=== PATIENT | male | born 1970 | race Caucasian/White ===

== ENCOUNTER 2022-03-08 18:29 | Inpatient (IN) ==
[2022-03-08 19:12] LABS: Basophils # 0.1 10*3/uL (0.0-0.2); Basophils % 0.8 % (0.0-0.8); Eosinophils # 0.1 10*3/uL (0.0-0.87); Hematocrit 44.6 VOL% (42.0-52.0); Hemoglobin 15.7 GM/DL (14.0-18.0); Immature Granulocytes % 0.3 %; Immature Granulocytes Absolute 0.02 #; Lymphocytes # 1.4 10*3/uL (1.4-4.0); Lymphocytes % 23.1 % (21.2-54.2); Mean Corpuscular HGB Conc 35.2 GM/DL (32-36); Mean Corpuscular Volume 88.1 FL (87-102); Mean Platelet Volume 11.6 FL (9.6-12.0); Monocytes # 0.5 10*3/uL (0.11-0.8); Neutrophils % 66.8 % (38.7-73.9); Platelet Count 128 T/CUMM (130-400); Red Blood Count 5.06 MC/CUMM (3.8-5.5); Red Cell Distribution Width 12.3 % (9.3-17.3)
[2022-03-08 19:34] LABS: Albumin 4.2 G/DL (3.4-5.0); Bilirubin,Total 0.8 MG/DL (0.20-1.00); Calcium 9.7 MG/DL (8.5-10.1); Osmolality,Calculated 277.2 MOS/KG (273-304); Potassium 3.6 MMOL/L (3.5-5.1); Total Protein 7.8 G/DL (6.4-8.2)
[2022-03-08] MEDS ORDERED: MORPHINE 2 MG/1 ML SYRINGE IV STA (20:04)
[2022-03-08] MEDS ORDERED: ONDANSETRON 4 MG/2 ML VIAL IV STA (20:04)
[2022-03-08] MEDS ORDERED: ASPIRIN 325 MG TABLET PO STA (20:04)
[2022-03-08] MEDS ORDERED: ENOXAPARIN 100 MG/ML SYRINGE SUBCUT STA (20:04)
[2022-03-08] MEDS ORDERED: NITROGLYCERIN 2% OINT 1 INCH/GM PACK TOP STA (20:04)
[2022-03-08] MEDS ORDERED: ACETAMINOPHEN 325 MG TABLET PO PRN (21:02)
[2022-03-08] MEDS ORDERED: MAGNESIUM SULF RIDER 4 GM/100 ML PREMIX IV PRN (21:02)
[2022-03-08] MEDS ORDERED: hydrALAZINE 20 MG/1 ML VIAL IV PRN (21:02)
[2022-03-08] MEDS ORDERED: MAGNESIUM SULF RIDER 2 GM/50 ML PREMIX IV PRN (21:02)
[2022-03-08] MEDS ORDERED: NITROGLYCERIN SL 0.4 MG TABLET SL PRN (21:02)
[2022-03-08] MEDS ORDERED: ALUMINUM/MAGNES/SIMETH MAX STR 30 ML UDCUP PO PRN (21:02)
[2022-03-08] MEDS ORDERED: ONDANSETRON 4 MG/2 ML VIAL IV PRN (21:02)
[2022-03-08] MEDS ORDERED: GLUCAGON 1 MG VIAL IM PRN (21:02)
[2022-03-08] MEDS ORDERED: MORPHINE 2 MG/1 ML SYRINGE IV PRN (21:02)
[2022-03-08] MEDS ORDERED: POTASSIUM CHLORIDE 20 MEQ TABLET PO PRN ×2 (21:02)
[2022-03-08] MEDS ORDERED: DEXTROSE 10% 250 ML BAG IV PRN (21:16)
[2022-03-08] MEDS: carvediloL 3.125 MG TABLET PO SCH (22:45)
[2022-03-08] MEDS: SODIUM CHLORIDE 0.9% 1,000 ML IV SCH (22:45)
[2022-03-09 02:36] LABS: Basophils % 0.6 % (0.0-0.8); Eosinophils # 0.1 10*3/uL (0.0-0.87); Eosinophils % 1.6 % (0.00-10.9); Hematocrit 40.1 VOL% (42.0-52.0); Hemoglobin 13.9 GM/DL (14.0-18.0); Immature Granulocytes % 0.4 %; Immature Granulocytes Absolute 0.03 #; Lymphocytes % 29.1 % (21.2-54.2); Mean Corpuscular HGB Conc 34.7 GM/DL (32-36); Mean Corpuscular Volume 90.1 FL (87-102); Mean Platelet Volume 11.3 FL (9.6-12.0); Monocytes # 0.6 10*3/uL (0.11-0.8); Monocytes % 9.3 % (1.7-12.7); Platelet Count 108 T/CUMM (130-400); Red Blood Count 4.45 MC/CUMM (3.8-5.5); Red Cell Distribution Width 12.3 % (9.3-17.3); White Blood Count 6.7 T/CUMM (4-12)
[2022-03-09 02:45] LABS: PT Patient Result 10.7 SECS (10.5-12.0); Partial Thromboplastin Time 28.5 SECS (23.7-32.9)
[2022-03-09 03:20] LABS: Calcium 8.7 MG/DL (8.5-10.1); Potassium 3.9 MMOL/L (3.5-5.1); Risk Ratio 6.38; Thyroid Stimulating Hormone 2.16 uIU/ml (0.358-3.74)
[2022-03-09] MEDS ORDERED: DIAZEPAM 5 MG TABLET PO ONE (07:43)
[2022-03-09] MEDS ORDERED: diphenhydrAMINE CAP 50 MG CAPSULE PO ONE (07:43)
[2022-03-09] MEDS: ASPIRIN EC 81 MG TABLET PO SCH (08:32)
[2022-03-09] MEDS: DOCUSATE SODIUM 100 MG CAPSULE PO SCH ×2 (08:32→20:58)
[2022-03-09] MEDS: carvediloL 3.125 MG TABLET PO SCH ×2 (08:32→21:00)
[2022-03-09] MEDS: PANTOPRAZOLE 40 MG TABLET PO SCH (08:33)
[2022-03-09] MEDS: lisinopriL 10 MG TABLET PO SCH (08:33)
[2022-03-09] MEDS: INSULIN REGULAR 100 UNIT/ML SUBCUT SCH ×4 (08:34→20:25)
[2022-03-09] MEDS ORDERED: ENOXAPARIN 80 MG/0.8 ML SYRINGE SUBCUT SCH (09:00)
[2022-03-09] MEDS ORDERED: ASPIRIN EC 325 MG TABLET PO SCH (09:00)
[2022-03-09] MEDS ORDERED: NITROGLYCERIN DRIP 50 MG/250 ML BOTTLE IV ONE (10:38)
[2022-03-09] MEDS ORDERED: VERAPAMIL 5 MG/2 ML VIAL ONE (10:39)
[2022-03-09] MEDS ORDERED: fentaNYL 100 MCG/2 ML VIAL ONE (11:42)
[2022-03-09] MEDS ORDERED: MIDAZOLAM 2 MG/2 ML VIAL ONE ×2 (11:42→12:35)
[2022-03-09] MEDS ORDERED: TIROFIBAN 5,000 MCG/100 ML PREMIX IV ONE (12:10)
[2022-03-09] MEDS ORDERED: TICAGRELOR 90 MG TABLET ONE (12:47)
[2022-03-09] MEDS ORDERED: TIROFIBAN 5,000 MCG/100 ML PREMIX IV SCH (12:50)
[2022-03-09] MEDS ORDERED: GLUCAGON 1 MG VIAL IM PRN (12:54)
[2022-03-09] MEDS ORDERED: DEXTROSE 10% 250 ML BAG IV PRN (13:01)
[2022-03-09] MEDS: SODIUM CHLORIDE 0.9% 1,000 ML IV SCH (17:38)
[2022-03-09] MEDS: TICAGRELOR 90 MG TABLET PO SCH (20:58)
[2022-03-09] MEDS ORDERED: ATORVASTATIN 80 MG TABLET PO SCH (21:00)
[2022-03-09] MEDS ORDERED: INSULIN GLARGINE 100 UNIT/ML SUBCUT SCH (21:00)
[2022-03-10] MEDS: SODIUM CHLORIDE 0.9% 1,000 ML IV SCH (02:11)
[2022-03-10 04:51] LABS: Basophils % 0.4 % (0.0-0.8); Eosinophils # 0.1 10*3/uL (0.0-0.87); Eosinophils % 0.9 % (0.00-10.9); Hematocrit 38.7 VOL% (42.0-52.0); Immature Granulocytes % 0.6 %; Immature Granulocytes Absolute 0.03 #; Lymphocytes % 18.6 % (21.2-54.2); Mean Corpuscular HGB Conc 33.6 GM/DL (32-36); Mean Corpuscular Volume 91.3 FL (87-102); Mean Platelet Volume 11.7 FL (9.6-12.0); Monocytes # 0.7 10*3/uL (0.11-0.8); Monocytes % 12.2 % (1.7-12.7); Neutrophils % 67.3 % (38.7-73.9); Platelet Count 99 T/CUMM (130-400); Red Blood Count 4.24 MC/CUMM (3.8-5.5); Red Cell Distribution Width 12.4 % (9.3-17.3); White Blood Count 5.3 T/CUMM (4-12)
[2022-03-10 05:09] LABS: Calcium 8.9 MG/DL (8.5-10.1); Osmolality,Calculated 282.7 MOS/KG (273-304); Potassium 3.8 MMOL/L (3.5-5.1)
[2022-03-10 05:10] LABS: CKMB % 5.33 %
[2022-03-10 05:20] LABS: High Sensitive Troponin I* 7554.2 ng/L (0-78)
[2022-03-10] MEDS: PANTOPRAZOLE 40 MG TABLET PO SCH (09:33)
[2022-03-10] MEDS: INSULIN REGULAR 100 UNIT/ML SUBCUT SCH ×2 (09:33→12:53)
[2022-03-10] MEDS: ASPIRIN EC 81 MG TABLET PO SCH (09:33)
[2022-03-10] MEDS: TICAGRELOR 90 MG TABLET PO SCH (09:33)
[2022-03-10] MEDS: lisinopriL 10 MG TABLET PO SCH (09:33)
[2022-03-10] MEDS: carvediloL 3.125 MG TABLET PO SCH (09:33)
[2022-03-10] MEDS: DOCUSATE SODIUM 100 MG CAPSULE PO SCH (09:33)
[2022-03-10 12:01] VITALS: BP 132/77
== END 2022-03-10 14:54 | disposition home or self-care (01) | DRG 247 ==
LOC: N.ED 18:29 → N.EDINP 21:02 → N.TELEN 21:30
PROVIDERS: ADMIT Internal Medicine; ATTEND Internal Medicine
PROC: CLCCHCL (ICD-10-PCS; 2022-03-09 10:15)